=== PATIENT | female | born 2000 | race Caucasian/White ===

== ENCOUNTER 2019-12-01 19:22 | Observation (INO) | payer OTHER ==
[~2019-12-01] VITALS: Ht 165.1 cm; Wt 63.6 kg
[2019-12-01 20:41] LABS: BASO # 0.1 (0.0-0.2); BASO % 0.7 % (0.0-2.0); EOS # 0.1 (0.0-0.7); EOS % 1.1 % (0-4.0); GRAN # 7.6 (1.4-6.5); GRAN % 72.3 % (42.2-75.2); HEMOGLOBIN 12.1 g/dl (12.0-15.0); LYMPH # 1.6 (1.2-3.4); LYMPH % 15.1 % (20.0-51.0); MEAN CELL VOLUME 83 fl (80.0-95.0); MEAN CORPUSCULAR HEMOGLOBIN 28 pg (26.0-32.0); MEAN CORPUSCULAR HGB CONC 34 g/dl (33.0-37.0); MEAN PLATELET VOLUME 11.1 fl (7.4-10.4); MONO # 1.1 (0.1-0.6); MONO % 10.5 % (1.7-9.3); PLATELET COUNT 267 K/mm3 (130-400); RED BLOOD COUNT 4.35 M/mm3 (4.10-5.30)
[2019-12-01 20:56] LABS: ALBUMIN 4.6 gm/dL (3.5-5.0); BILIRUBIN,TOTAL 0.9 mg/dL (0.0-1.0); C-REACTIVE PROTEIN 1.3 mg/dL (0.0-0.9); CALCIUM 9.1 mg/dL (8.4-10.2); CREATININE, serum 0.84 (0.52-1.25); POTASSIUM 3.7 mmol/L (3.4-5.0); TOTAL PROTEIN 7.9 gm/dL (6.4-8.2)
[2019-12-01 22:58] LABS: COLLECTION METHOD CLEAN CATCH
[2019-12-01 23:04] LABS: MUCOUS Present /lpf; PH 6 (5-8); SQUAMOUS EPITHELIAL 0-2 /hpf; URINE APPEARANCE Hazy; URINE BACTERIA Rare /hpf; URINE BILIRUBIN Negative (NEGATIVE); URINE BLOOD Negative (NEGATIVE); URINE COLOR Yellow; URINE GLUCOSE Negative (NEGATIVE); URINE KETONE Negative (NEGATIVE); URINE LEUKOCYTE ESTERASE Trace (NEGATIVE); URINE NITRATE Negative (NEGATIVE); URINE PROTEIN(semi-quant) Negative (NEGATIVE); URINE RBC 0-2 /hpf; URINE UROBILINOGEN Negative (NEGATIVE)
[2019-12-02] VITALS (10 sets, daily range): BP systolic 102–122; BP diastolic 48–84; PULSE 69–92; TEMP 98.2–98.6
--- NOTE | 2019-12-02 01:08 | NUR ---
PATIENT IS VERY ATTENTIVE, AMBULATES EASILY, REMAINED STANDING DURING ASSESSMENT NERVOUS
--- NOTE | 2019-12-02 08:20 | NUR ---
PT A/O X4, IN BED WITH HOB AND MOTHER AT BEDSIDE. DR. RUIZ IN TO SEE PATIENT. DENIES PAIN OR DISCOMFORT AND NO NEEDS AT THIS TIME, CALL LIGHT WITHIN REACH.
[2019-12-02] MEDS ORDERED: ULTRAM 50MG TAB50 MG PO (10:13)
--- NOTE | 2019-12-02 10:56 | NUR ---
Patient up from OR. Alert and oriented x 3. Lap sites x 3 with edges well approximated. Denies pain at this time. Post op VSS. Post op fluids infusing per orders. Tolerating clear liquids at this time. Denies further needs at this time.
--- NOTE | 2019-12-02 12:55 | NUR ---
Discharge education provided to patient and mother. Educated on signs and symptoms of infection. Educated on scheduling follow up appointment and when to call provider. Educated on new medications. INT to right AC discontinued; catheter tip intact. Patient tolerating diet, denies pain, has been up ambulating independently. VSS. Denies further needs at this time. Patient ambulated out with surgical staff and family.
== END 2019-12-02 12:55 | disposition home or self-care (01) ==
LOC: COL.ER 19:22 → MEDICAL 22:53 → SURG 12-02 10:54
PROVIDERS: Nurse Practitioner; ADMIT Surgery
DX: K35.80 Unspecified acute appendicitis (principal); Z86.19 Personal history of other infectious and parasitic diseases
CPT/HCPCS: G0378; J1100; J1885; J2250; J2405; J2543; J2704; J3010; J7030; J7120; Q9967

== ENCOUNTER 2020-09-14 13:09 | Emergency (ER) | payer OTHER ==
[~2020-09-14] VITALS: Ht 162.6 cm; Wt 65.9 kg
[~2020-09-14 13:09] MED LIST: ULTRAM 50MG TAB50 MG PO
[2020-09-14 13:26] VITALS: TEMP 98.5
[2020-09-14 13:51] LABS: COLLECTION METHOD CLEAN CATCH
[2020-09-14 14:00] LABS: MUCOUS Present /lpf; PH 5 (5-8); URINE APPEARANCE Hazy; URINE BACTERIA Occasional /hpf; URINE BILIRUBIN Negative (NEGATIVE); URINE BLOOD Negative (NEGATIVE); URINE COLOR Yellow; URINE GLUCOSE Negative (NEGATIVE); URINE KETONE Negative (NEGATIVE); URINE LEUKOCYTE ESTERASE 1+ (NEGATIVE); URINE NITRATE Negative (NEGATIVE); URINE PROTEIN(semi-quant) Negative (NEGATIVE); URINE UROBILINOGEN Negative (NEGATIVE)
[2020-09-14 14:05] LABS: TRICYCLIC ANTIDEPRESS URINE NEGATIVE
[2020-09-14 14:29] LABS: BASO # 0.1 (0.0-0.2); BASO % 0.8 % (0.0-2.0); EOS % 0.5 % (0-4.0); GRAN # 4.3 (1.4-6.5); GRAN % 67.3 % (42.2-75.2); HEMATOCRIT 37.8 % (37.0-47.0); HEMOGLOBIN 12.7 g/dl (12.5-16.0); LYMPH # 1.5 (1.2-3.4); LYMPH % 23.4 % (20.0-51.0); MEAN CELL VOLUME 84 fl (80.0-100.0); MEAN CORPUSCULAR HEMOGLOBIN 28 pg (27.0-31.0); MEAN CORPUSCULAR HGB CONC 34 g/dl (33.0-37.0); MEAN PLATELET VOLUME 11.3 fl (7.4-10.4); MONO # 0.5 (0.1-0.6); MONO % 7.7 % (1.7-9.3); PLATELET COUNT 235 K/mm3 (130-400)
[2020-09-14 14:41] LABS: ALANINE AMINOTRANSFERASE 14 U/L (4-34); ALBUMIN 4.4 gm/dL (3.5-5.0); ALKALINE PHOSPHATASE 75 U/L (50-136); ANION GAP 7 mmol/L (7-16); AST,SGOT 24 U/L (15-37); BILIRUBIN,TOTAL 1.1 mg/dL (0.0-1.0); BLOOD UREA NITROGEN 11 mg/dL (7-17); CALCIUM 8.8 mg/dL (8.4-10.2); CARBON DIOXIDE 24 mmol/L (22-30); CHLORIDE 108 mmol/L (98-107); CREATININE, serum 0.79 (0.52-1.25); GLUCOSE 85 mg/dL (74-106); SODIUM 139 mmol/L (137-145); TOTAL PROTEIN 7.8 gm/dL (6.4-8.2)
[2020-09-14 14:42] LABS: ACETAMINOPHEN < 10 ug/mL (10-30); ALCOHOL(ethanol),MEDICAL < 10 mg/dL; SALICYLATE < 1.0 mg/dL
[2020-09-14 17:09] VITALS: BP 109/59; PULSE 73
== END 2020-09-14 17:09 | disposition home or self-care (01) ==
LOC: COL.ER 13:09
PROVIDERS: Nurse Practitioner
DX: R45.851 Suicidal ideations (principal)